=== PATIENT | male | born 1980 | race Caucasian/White ===

== ENCOUNTER 2016-11-27 05:23 | Inpatient (IN) | payer OTHER ==
[2016-11-24 16:52] VITALS: BMI 35.7
[~2016-11-27] VITALS: Ht 177.8 cm; Wt 111.3 kg
[2016-11-27] VITALS (31 sets, daily range): BP systolic 66–165; BP diastolic 37–95; PULSE 64–98; RESP 11–20; Ht 177.8 cm; Wt 111.3 kg
[~2016-11-27 05:23] MED LIST: CEFAZOLIN 2 GM/50 ML (PMX) 50 ML IVPB ONE; LACTATED RINGER'S 1,000 ML IV* ONE
[2016-11-27] MEDS ORDERED: LACTATED RINGER'S 1,000 ML IV* SCH (06:30)
[2016-11-27] MEDS ORDERED: IBUPROFEN PRN (06:32)
[2016-11-27] MEDS ORDERED: PROPOFOL 100 ML ONE (06:53)
[2016-11-27] MEDS ORDERED: THROMBIN 5000 UNIT VIAL ONE (06:54)
[2016-11-27] MEDS ORDERED: GELATIN SIZE 100 SPONGE ONE (06:54)
[2016-11-27] MEDS ORDERED: BUPIVACAINE 0.25% (MPF) 10 ML 10 ML VIAL ONE (06:54)
[2016-11-27] MEDS ORDERED: POLYMYXIN/BACITRACIN 1L IRRIG ONE (06:54)
[2016-11-27] MEDS ORDERED: SUCCINYLCHOLINE CHLORIDE 100 MG/5 ML SYG IV ONE (07:00)
--- NOTE | 2016-11-27 07:04 | HPN ---
Date/Time of Note Date/Time of Note DATE: 11/27/16 TIME: 07:04 Interval H&P Admission Note Pt. seen H&P reviewed: No system changes JU CHILDS MD Nov 27, 2016 07:04
[2016-11-27] MEDS ORDERED: LABETALOL HCL 20MG INJ ONE (07:36)
[2016-11-27] MEDS ORDERED: HYDROmorphONE 2 MG/ML SYG ONE (07:36)
[2016-11-27] MEDS ORDERED: HYDROmorphONE (0.2 MG/ML) 10ML SYG IV PRN ×3 (08:00)
[2016-11-27] MEDS ORDERED: ONDANSETRON 4 MG INJ IV PRN ×2 (08:00→10:00)
[2016-11-27] MEDS ORDERED: FENTAnyl 50 MCG/ML VIAL IV PRN ×3 (08:00)
[2016-11-27] MEDS ORDERED: LABETALOL HCL 20MG INJ IV PRN (08:00)
[2016-11-27] MEDS ORDERED: hydrALAzine 20 MG INJ IV PRN (08:00)
[2016-11-27] MEDS ORDERED: MEPERIDINE 25 MG INJ IV PRN (08:00)
[2016-11-27] MEDS ORDERED: EPHEDrine SULFATE 50 MG/5 ML SYG IV PRN (08:00)
[2016-11-27] MEDS ORDERED: DEXAMETHASONE 4 MG/ML 1 ML INJ ONE (08:46)
[2016-11-27] MEDS ORDERED: ONDANSETRON 4 MG INJ ONE (08:46)
[2016-11-27] MEDS ORDERED: ACETAMINOPHEN 1000MG/100ML IV 100 ML ONE (08:48)
[2016-11-27] MEDS ORDERED: NEOSTIGMINE 3 MG/3 ML SYRINGE ONE (08:48)
[2016-11-27] MEDS ORDERED: ROCURONIUM 50 MG INJ ONE (08:48)
[2016-11-27] MEDS ORDERED: GLYCOPYRROLATE 1 MG INJ ONE (08:48)
[2016-11-27] MEDS ORDERED: PROPOFOL 20 ML ONE (08:49)
--- NOTE | 2016-11-27 09:40 | OPPN ---
Date/Time of Note Date/Time of Note DATE: 11/27/16 TIME: 09:36 Operative/Procedure Note Pre-Operative Diagnosis Herniated lumbar disc L4-5 centrally with extruded disc fragments Post-Operative Diagnosis Same Procedure Right hemilaminotomy L4 Microdiscectomy L4-5 on the right Medial facetectomy and foraminotomies at L4-5 on the right Cosmetic wound closure (3 cm) Lateral localizing lumbar radiographs (2) Intraoperative nerve monitoring (60 minutes) Surgeon: JU CHILDS MD Physical Geographer: LIZ LEONARD Anesthesiologist: LUIS ELKINS Findings A large disc herniation at L4-5 centrally and to the right was confirmed per the intraoperative nerve monitoring revealed a decrease in the right L5 potential of 50%. Blood Usage/Administration None Estimated blood loss: 0 - 10 ml's Drains 2 medium Hemovac drains employed Specimens Disc material from L4-5. Complications: None Anesthesia type: general JU CHILDS MD Nov 27, 2016 09:40
[2016-11-27] MEDS ORDERED: BETHANECHOL 25 MG TAB PO PRN (10:00)
[2016-11-27] MEDS ORDERED: NALOXONE (0.4 MG/ML) INJ IV PRN (10:00)
[2016-11-27] MEDS ORDERED: AL HYDROX/MG HYDROX/SIMETH 30 ML CUP PO PRN (10:00)
[2016-11-27] MEDS ORDERED: PROCHLORPERAZINE 10 MG TAB PO PRN (10:00)
[2016-11-27] MEDS ORDERED: CEPASTAT LOZENGE MT PRN (10:00)
[2016-11-27] MEDS ORDERED: DIPHENHYDRAMINE 50 MG CAP PO PRN (10:00)
[2016-11-27] MEDS ORDERED: HYDROmorphONE 0.2 MG/ML PCA IV SCH (10:00)
[2016-11-27] MEDS ORDERED: ACETAMINOPHEN 325 MG TAB PO PRN (10:00)
[2016-11-27] MEDS ORDERED: ZOLPIDEM 5 MG TAB PO PRN (10:00)
[2016-11-27] MEDS ORDERED: DIAZEPAM 5 MG TAB PO PRN (10:00)
[2016-11-27] MEDS ORDERED: DIAZEPAM 5 MG/ML SYG IM PRN (10:00)
[2016-11-27] MEDS ORDERED: TRIMETHOBENZAMIDE 100 MG/ML VIAL IM PRN (10:00)
[2016-11-27] MEDS ORDERED: NACL 0.9% 3 ML SYG IV SCH (10:00)
[2016-11-27] MEDS ORDERED: HYDROCODONE/APAP (5/325) TAB PO PRN ×2 (10:00)
[2016-11-27] MEDS: DEXTROSE 5%-0.45% NACL 1,000 ML IV SCH ×2 (11:31→21:01)
[2016-11-27] MEDS: CEFAZOLIN 1 GM/50 ML (PMX) 50 ML IVPB SCH ×3 (11:32→23:55)
--- NOTE | 2016-11-27 12:06 | OPR ---
DATE OF OPERATION: 11/27/2016 PREOPERATIVE DIAGNOSIS: Herniated disk, L4-5 centrally with extruded disk fragments. POSTOPERATIVE DIAGNOSIS: Herniated disk, L4-5 centrally with extruded disk fragments. OPERATION/PROCEDURES: On 11/27/2016, the patient underwent the following procedures: 1. Right hemilaminotomy, L4. 2. Microdiskectomy, L4-5 on the right. 3. Medial facetectomy and foraminotomy, L4-5 on the right. 4. Cosmetic wound closure (3.0 cm). 5. Lateral localized lumbar radiographs (2). 6. Intraoperative nerve monitoring (60 minutes). SURGEON: Ritesh Irwin MD MACHINE STOPPAGE FREQUENCY CHECKER: Rosa Renner PA-C ANESTHESIA: General endotracheal. ANESTHESIOLOGIST: Dr. Dustin Monk MD ESTIMATED BLOOD LOSS: 10 mL, none replaced. DRAINS: Two medium Hemovac drains employed. COMPLICATIONS: None. 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 He has had extensive care since that time, has remained symptomatic with back and bilateral leg pain, right gr eater than left, which have been unrelieved by conservative management. He has undergone a number o f diagnostic studies including MRI of the lumbar spine which demonstrated a large central herniation of the L4-L5 disk. Treatment options were discussed with the patient, who elected to proceed with surgery. OPERATIVE FINDINGS AT SURGERY: A large central herniation of the L4-L5 disk was confirmed. Baselin e intraoperative nerve monitoring revealed a decrease in the right L5 potential of 50%. This return ed to normal at the completion of surgery. OPERATIVE PROCEDURE: With the patient in supine position after satisfactory induction of general en dotracheal anesthesia by Dr. Monk, the patient was turned to the prone kneeling position on the [facility] frame. All pressure points were carefully padded. The back was prepped and draped in usual st erile fashion. Athrombic pumps were applied to the legs below the knees to prevent venous stasis du ring and after the procedure. Two spinal needles were placed next to what was felt to be the spinou s process of L4 and L5. A lateral roentgenogram was taken which confirmed anatomic localization. A 3 cm incision then carried out midline over the spinous process of L4 through skin and subcutaneous tissue to deep fascia after skin was infiltrated with 0.25% Marcaine without epinephrine for postop erative analgesia. Superficial retractors were placed and hemostasis secured with electrocautery. A fascial incision made over the spinous process of L4 and a bilateral subperiosteal dissection was then carried out on the right side of the spinous process of L4 with a Galvan elevator. Deep retracto rs were placed and deep hemostasis secured with electrocautery. A second intraoperative radiograph was taken with deep retractor at what was felt to be the L4-5 interspace, and this was confirmed wit h second x-ray. A right hemilaminotomy at L4 was then carried out using Leksell rongeur, Kerrison punches and curett es. Ligamentum flavum was incised with sharp dissection. The operating microscope was moved into p lace. Medial facetectomy and foraminotomy was accomplished using small hand osteotome, mallet, Tolentino darren punches and curettes. The L5 root was then mobilized medially and protected with D'Errico nerv e retractor using microdissection technique. This revealed a large central herniation of the L4-5 d isk. A 15 blade knife used to cut a rectangular window in the annulus and posterior longitudinal li gament and multiple degenerative disk fragments were harvested with pituitary rongeurs and sent to l aboratory for pathologic study. Additional fragments were harvested using Alfredo curettes and Aubrey in curettes. A thorough search of the floor of the canal was made with an arthroscopic probe and no additional fragments were encountered. The epidural hemostasis was secured with bipolar electrocau jayda on low setting. The anesthesiologist then asked to perform a Valsalva maneuver at 40 mmHg and no spinal fluid leakage was noted. The wound was then closed in layers over 2 medium Hemovac drains using #1 Vicryl [id number] soni roximating sutures in deep paralumbar musculature and deep fascia of back, 2-0 Vicryl subcutaneous a pproximating sutures in subcu tissue, and a 4-0 Vicryl subcuticular cosmetic closing suture on the s kin. Dermabond and sterile compressive dressings were applied. The patient having tolerated proced ure well, was then turned to supine position onto his bed and extubated by Dr. Monk. He was transpo rted to the recovery room in satisfactory condition. At the conclusion of the procedure, sponge, in strument, and needle counts were all correct. NEED FOR ACCREDITED LEGAL SECRETARY: During this spinal surgical procedure, my office support assistant was used to retrac t and protect the spinal nerves and dural sac. My office support assistant also employed the suction catheters to e vacuate blood from the surgical field to improve visualization of the neural structures. The assista nt was medically necessary to facilitate the completion of the surgery in a safe and expeditious man ner. State of [place] regulations, as well as hospital bylaws, preclude the use of non-licensed [facility] care personnel such as operating room technicians, to perform these functions. Throughout the procedure, neural monitoring was carried out by [employer] including EMG, SSEP and MEP monitoring of the L3, L4, L5 and S1 nerve roots along with spinal cord p otentials. These were interpreted by a neurologist employed by [employer]. Dictated By: RITESH IRWIN MD TM/NICOLE Conf#: [id number] DID#: [id number] CC: DEMOND MALDONADO DO;*EndCC*
--- NOTE | 2016-11-27 13:39 | RADRPT ---
PROCEDURE: Intraoperative XR. CLINICAL INDICATION: Intraoperative radiograph during lumbar microdiskectomy.. TECHNIQUE: Spot intraoperative lateral lumbar x-ray images were provided. The images were reviewe d on a high-resolution PACS workstation. COMPARISON: None available FINDINGS: Spot intraoperative lateral lumbar views were provided during lumbar microdiskectomy. The images de monstrate metallic probes at the level of L4 and L5. There are anterior osteophytes L3 to S1 with mi ld narrowing of the L4-5 and L5-S1 intervertebral discs. IMPRESSION: 1. Spot intraoperative lateral lumbar view during lumbar microdiskectomy were provided. 2. Please see operative report of the same day for further information. RPTAT: DD .Sterling Clemons MD, MD Date Time Electronically viewed and signed by .Sterling Clemons MD, on 11/27/2016 13:39 .S/
--- NOTE | 2016-11-27 13:41 | RADRPT ---
PROCEDURE: Intraoperative XR. CLINICAL INDICATION: Intraoperative radiograph during L4-5 microdiskectomy.. TECHNIQUE: Spot intraoperative lateral lumbar x-ray image was provided. The images were reviewed on a high-resolution PACS workstation. COMPARISON: None available FINDINGS: Spot intraoperative lateral lumbar view was provided during L4-5 microdiskectomy. The images demons trate surgical instrumentation at the level of L4-5. IMPRESSION: 1. Spot intraoperative lateral lumbar view during lumbar microdiskectomy were provided. 2. Please see operative report of the same day for further information. RPTAT: DD .Sterling Clemons MD, Date Time Electronically viewed and signed by .Sterling Clemons MD, on 11/27/2016 13:41 .S/
--- NOTE | 2016-11-27 16:52 | PN ---
Date/Time of Note Date/Time of Note DATE: 11/27/16 TIME: 16:42 Assessment/Plan VTE Prophylaxis VTE Prophylaxis Intervention: anti-embolic stocking Lines/Catheters IV Catheter Type (from Nrsg): Peripheral IV Assessment/Plan Assessment/Plan Continue postoperative care as per Dr Irwin. Subjective 24 Hr Interval Summary Free Text/Dictation The patient is seen on day1 in post up family medicine consultation. He underwent lumbar discectomy this morning with Dr Irwin. He is alert and well oriented. He feels well with the expected post operative incisional pain. He is pleased that his lumbar radicular pain has resolved. He did ambulate with PT this morning. Objective Vital Signs and I&O Vital Signs Date Time Temp Pulse Resp B/P Pulse Ox O2 Delivery O2 Flow Rate FiO2 11/27/16 14:05 97.6 80 16 125/61 96 Nasal Cannula 2.0 General: No acute distress Respiratory Auscultation: Normal Breath Sounds Cardiovascular auscultation: RRR Gastrointestinal: Comment (bowel sounds active. Non tender to palpation) Neurological: Other (Moves all extremities.) DEMOND MALDONADO MD Nov 27, 2016 16:52
[2016-11-27] MEDS: RANITIDINE 150 MG TAB PO SCH (21:00)
[2016-11-28] VITALS: BP 116/59; RESP 20
[2016-11-28 05:05] LABS: HEMATOCRIT 38.7 % (42.0-52.0); HEMOGLOBIN 13.3 g/dl (14.0-18.0)
[2016-11-28 05:37] LABS: CREATININE 0.8 mg/dl (0.61-1.24)
[2016-11-28 05:38] LABS: CALCIUM 8.4 mg/dl (8.4-10.2)
[2016-11-28] MEDS: DEXTROSE 5%-0.45% NACL 1,000 ML IV SCH (06:00)
[2016-11-28] MEDS: CEFAZOLIN 1 GM/50 ML (PMX) 50 ML IVPB SCH (06:07)
--- NOTE | 2016-11-28 07:15 | PN ---
Date/Time of Note Date/Time of Note DATE: 11/28/16 TIME: 07:14 Assessment/Plan Lines/Catheters IV Catheter Type (from Nrs): Saline Lock Subjective 24 Hr Interval Summary Patient is postop day #1 from lumbar decompression discectomy. He is doing well , he has been up ambulating. Pain is well controlled. Vital signs are stable. Hemoglobin is 13.3 today. Neurovascular structures are intact. Hemovac output was 5 cc overnight and this was removed. Incision is healing well. Plan today is for him to progress ambulation, he may be discharged if he is cleared by PT and by internal medicine. DC instructions reviewed with patient. Exam/Review of Systems Vital Signs Vitals Vital Signs Date Time Temp Pulse Resp B/P Pulse Ox O2 Delivery O2 Flow Rate FiO2 11/28/16 01:00 18 11/28/16 00:00 97.9 89 116/59 94 11/27/16 14:05 Nasal Cannula 2.0 Intake and Output 11/27/16 11/27/16 11/28/16 15:00 23:00 07:00 Intake Total 1250 ml 1770 ml 1100 ml Output Total 40 ml 5 ml 1250 ml Balance 1210 ml 1765 ml -150 ml Results Result Diagram: 11/28/16 0420 11/28/16 0420 LIZ LEONARD Nov 28, 2016 07:15
[2016-11-28 07:50] VITALS: BP 129/63; RESP 18
[2016-11-28] MEDS ORDERED: BETHANECHOL 25 MG TAB PO PRN (08:00)
[2016-11-28] MEDS ORDERED: ASCORBIC ACID 500 MG TAB PO SCH (09:00)
[2016-11-28] MEDS ORDERED: DOCUSATE SODIUM 100 MG CAP PO SCH (09:00)
[2016-11-28] MEDS: RANITIDINE 150 MG TAB PO SCH (11:25)
[2016-11-28] MEDS: FERROUS SULFATE (EC) 325 MG TAB PO SCH ×2 (11:25→13:00)
== END 2016-11-28 14:15 | disposition home or self-care (01) | DRG 520 ==
LOC: REC 05:23 → MS1 10:55
PROVIDERS: ADMIT Orthopaedic Surgery; ATTEND Orthopaedic Surgery
PROC: 0SB20ZZ Excision of Lumbar Vertebral Disc, Open Approach (ICD-10-PCS; principal; 2016-11-27 07:00)
DX: M51.26 Other intervertebral disc displacement, lumbar region (principal); E66.9 Obesity, unspecified; M51.36 Other intervertebral disc degeneration, lumbar region; Z68.35 Body mass index [BMI] 35.0-35.9, adult
CPT/HCPCS: 72020; 80048; 85014; 85018; 86850; 86900; 86901; 86920; 97116; 97162; 97530; J0131; J0330; J0690; J1100; J1170; J2405; J2710; J3010; J7042; J7120